=== PATIENT | female | born 1990 | race Caucasian/White ===

== ENCOUNTER → 2016-09-18 | Outpatient (CLI) | payer MEDICAID ==
[~2016-09-18] MED LIST: AMOXIL500 MG PO; BENADRYL25 M1 PO; GENTAMICIN O5 ML/BOT OP; MOTRIN 400MG.400 MG PO; MOTRIN400 MG PO; NAPROSYN 375MG375 MG PO; NOMEDS; NOMEDS *; ORTHO-CYCLEN 351 TA1 PO; PEPCID20 MG PO; PERCOCET 5/3251 EACH PO; PRENATAL PLUS1 TA1; PRENATAL PLUS1 TA1 PO; ROBAXIN 500 MG500 MG PO; SKELAXIN400 MG PO; STERAPRED DS10 MG PO
[2016-09-18 15:03] LABS: LYMPH # 2.2 K/mm3 (0.7-4.5); LYMPH % 25.9 % (10-50.0)
[2016-09-18 15:11] LABS: HEMOGLOBIN 13.8 g/dL (12.2-16.2)
[2016-09-18 18:10] LABS: ABO BLOOD TYPE O; RH BLOOD TYPE POSITIVE
[2016-09-20 08:47] LABS: HIV Screen 4th Generation wRfx Non Reactive (Non Reactive); Rubella Antibodies, IgG <0.90 index (Immune >0.99)
[2016-09-20 09:38] LABS: Rapid Plasma Reagin, Quant Non Reactive (NonRea<1:1)
[2016-09-20 12:36] LABS: HBsAg Screen Negative (Negative)
== END ==
LOC: LAB 14:37
PROVIDERS: Nurse Practitioner Obstetrics & Gynecology
DX: Z34.80 Encounter for supervision of other normal pregnancy, unspecified trimester (principal)
CPT/HCPCS: G0432